=== PATIENT | male | born 1990 | race Caucasian/White ===

== ENCOUNTER 2018-03-02 14:53 | Inpatient (IN) | payer OTHER ==
[2018-03-02 15:43] VITALS: BMI 24.3
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
[2018-03-02] MEDS ORDERED: guaiFENesin/D-METHORPHAN HB 10 ML UNIT-DOSE CUPS PO PRN (18:35)
[2018-03-02] MEDS ORDERED: METHADONE HCL 10 MG TABLET (FOR DETOX USE ONLY) PO ONE ×2 (18:35→23:00)
[2018-03-02] MEDS ORDERED: LOPERAMIDE HCL 2 MG CAPSULE PO PRN (18:35)
[2018-03-02] MEDS ORDERED: P-EPHED 60MG/TRIPROLIDI 2.5MG TABLET PO PRN (18:35)
[2018-03-02] MEDS ORDERED: ACETAMINOPHEN 325 MG TABLET (FP) PO PRN (18:35)
[2018-03-02] MEDS ORDERED: MAGNESIUM CITRATE 300 ML BOTTLE PO PRN (18:35)
[2018-03-02] MEDS ORDERED: IBUPROFEN 400 MG TABLET (FP) PO PRN (18:35)
[2018-03-02] MEDS ORDERED: MAG HYDROX/AL HYDROX/SIMETH 30 ML UNIT-DOSE CUP PO PRN (18:35)
[2018-03-02] MEDS ORDERED: MENTHOL/PHENOL 1 EACH UD MM PRN (18:35)
[2018-03-02] MEDS ORDERED: MAGNESIUM HYDROX 2400MG/30ML ORAL SUSPENSION 30 ML CUP PO PRN (18:35)
[2018-03-02] MEDS ORDERED: NICOTINE POLACRILEX 4 MG GUM BUC PRN (18:35)
[2018-03-02] MEDS ORDERED: diazePAM 5 MG TABLET PO ONE (19:00)
[2018-03-02] MEDS: NICOTINE 21 MG/24 HOURS TOPICAL PATCH TD SCH (19:29)
[2018-03-02] MEDS ORDERED: MELATONIN 5 MG TABLETS PO PRN (22:00)
[2018-03-02] MEDS: BACITRACIN 0.9 GM PACKET TP SCH (22:41)
[2018-03-02] MEDS: diazePAM 5 MG TABLET PO SCH (22:42)
[2018-03-02] MEDS: THIAMINE HCL 100 MG TABLET (FP) PO SCH (22:42)
[2018-03-03] MEDS: diazePAM 5 MG TABLET PO SCH ×3 (05:22→22:20)
[2018-03-03 10:00] LABS: HEMATOCRIT 40.6 % (35.4-49); HEMOGLOBIN 13.6 GM/dL (11.7-16.9); MCH 28.1 pg (25.7-33.7); MCHC 33.4 g/dl (32.0-35.9); MEAN PLT VOLUME 7.7 fl (7.5-11.1); PLATELET COUNT 341 K/MM3 (134-434); RBC 4.83 M/mm3 (4.00-5.60); RDW 14.7 % (11.9-15.9); WHITE BLOOD COUNT 5.9 K/mm3 (4.0-10.0)
[2018-03-03] MEDS ORDERED: METHADONE HCL 10 MG TABLET (FOR DETOX USE ONLY) PO SCH (10:00)
[2018-03-03 10:47] LABS: CHLORIDE 102 mmol/L (98-107); POTASSIUM 4.8 mmol/L (3.5-5.1); SODIUM 139 mmol/L (136-145)
--- NOTE | 2018-03-03 10:51 | EKG ---
Test Reason : Blood Pressure : / mmHG Vent. Rate : 077 BPM Atrial Rate : 077 BPM P-R Int : 134 ms QRS Dur : 090 ms QT Int : 364 ms P-R-T Axes : 061 046 042 degrees QTc Int : 411 ms NORMAL SINUS RHYTHM POSSIBLE LEFT ATRIAL ENLARGEMENT BORDERLINE ECG NO PREVIOUS ECGS AVAILABLE Confirmed by TAMARA KAUR MD ([id number]) on 03/03/2018 10:50:53 AM Referred By: Confirmed By:TAMARA KAUR MD
[2018-03-03 10:59] LABS: ALBUMIN 3.2 g/dl (3.4-5.0); ALK PHOS 72 U/L (45-117); ANION GAP 7 (8-16); BILIRUBIN,TOTAL 0.4 mg/dL (0.2-1.0); BLOOD UREA NITROGEN 7 mg/dL (7-18); CALCIUM 8.9 mg/dL (8.5-10.1); CO2 30 mmol/L (21-32); CREATININE 0.9 mg/dL (0.7-1.3); GLUCOSE,RANDOM 79 mg/dL (74-106); SGOT/AST 18 U/L (15-37); SGPT/ALT 22 U/L (12-78); TOT PROT 7.4 g/dl (6.4-8.2)
[2018-03-03] MEDS: BACITRACIN 0.9 GM PACKET TP SCH ×2 (11:07→22:19)
[2018-03-03] MEDS: NICOTINE 21 MG/24 HOURS TOPICAL PATCH TD SCH (11:08)
[2018-03-03] MEDS: cloNIDine HCL 0.1 MG TABLET PO SCH ×2 (11:08→22:20)
[2018-03-03] MEDS: PRENATAL VITAMINS W/ FOLIC ACID TABLET (FP) PO SCH (11:08)
[2018-03-03] MEDS: diazePAM 5 MG TABLET PO PRN (11:13)
--- NOTE | 2018-03-03 12:19 | PN ---
[facility] CIWA - CIWA Score Nausea/Vomitin Muscle Tremors: 3 Anxiety: 3 Agitation: 3 Paroxysmal Sweats: 1-Minimal Palms Moist Orientation: 1-Uncertain about Date Tacttile Disturbances: 1-Very Mild Itch/Numbness Auditory Disturbances: 1-Very Mild Visual Disturbances: 0-None Headache: 2-Mild CIWA-Ar Total Score: 18 BHS COWS - Scale Resting Pulse: 0= [place] 80 or Below Sweatin= Chills/Flushing Restless Observation: 3= Extraneous Movement Pupil Size: 1= Pupils >than Normal Bone or Joint Aches: 2= Severe Diffuse Aches Runny Nose/ Eye Tearin= Runny Nose/Eyes GI Upset > 30mins: 3= Vomiting/Diarrhea Tremor Observation of Outstretched Hands: 2= Slight Tremor Visible Yawning Observation: 1= 1-2x During Session Anxiety or Irritability: 2=Irritable/Anxious Goose Flesh Skin: 0=Smooth Skin COWS Score: 17 S Progress Note (SOAP) Subjective: alert,irritable,anxious,interrupted sleep,pain in the body and back Objective: 03/03/18 12:17 Vital Signs Temperature 98.2 F 03/03/18 09:30 Pulse Rate 64 03/03/18 09:30 Respiratory Rate 16 03/03/18 09:30 Blood Pressure 132/57 03/03/18 09:30 O2 Sat by Pulse Oximetry (%) ekg nsr qt 364/411 no chest pain,no sob,no dizziness Laboratory Last Values WBC 5.9 K/mm3 (4.0-10.0) 03/03/18 06:19 RBC 4.83 M/mm3 (4.00-5.60) 03/03/18 06:19 Hgb 13.6 GM/dL (11.7-16.9) 03/03/18 06:19 Hct 40.6 % (35.4-49) 03/03/18 06:19 MCV 84.0 fl (80-96) 03/03/18 06:19 MCH 28.1 pg (25.7-33.7) 03/03/18 06:19 MCHC 33.4 g/dl (32.0-35.9) 03/03/18 06:19 RDW 14.7 % (11.9-15.9) 03/03/18 06:19 Plt Count 341 K/MM3 (134-434) 03/03/18 06:19 MPV 7.7 fl (7.5-11.1) 03/03/18 06:19 Sodium 139 mmol/L (136-145) 03/03/18 06:19 Potassium 4.8 mmol/L (3.5-5.1) 03/03/18 06:19 Chloride 102 mmol/L (98-107) 03/03/18 06:19 Carbon Dioxide 30 mmol/L (21-32) 03/03/18 06:19 Anion Gap 7 (8-16) L 03/03/18 06:19 BUN 7 mg/dL (7-18) 03/03/18 06:19 Creatinine 0.9 mg/dL (0.7-1.3) 03/03/18 06:19 Creat Clearance w eGFR > 60 (>60) 03/03/18 06:19 Random Glucose 79 mg/dL (74-106) 03/03/18 06:19 Calcium 8.9 mg/dL (8.5-10.1) 03/03/18 06:19 Total Bilirubin 0.4 mg/dL (0.2-1.0) 03/03/18 06:19 AST 18 U/L (15-37) 03/03/18 06:19 ALT 22 U/L (12-78) 03/03/18 06:19 Alkaline Phosphatase 72 U/L (45-117) 03/03/18 06:19 Total Protein 7.4 g/dl (6.4-8.2) 03/03/18 06:19 Albumin 3.2 g/dl (3.4-5.0) L 03/03/18 06:19 RPR Titer Nonreactive (NONREACTIVE) 03/03/18 06:19 Assessment: 03/03/18 12:18 withdrawal symptom Plan: continue detox
[2018-03-03] MEDS: CYCLOBENZAPRINE HCL 10 MG TABLET (FP) PO SCH ×2 (14:20→22:20)
[2018-03-03 15:29] LABS: URINE APPEARANCE CLEAR; URINE BILIRUBIN NEGATIVE (<2.0 mg/dL); URINE COLOR YELLOW; URINE GLUCOSE (UA) NEGATIVE (NEGATIVE); URINE KETONE NEGATIVE (NEGATIVE); URINE LEUK ESTERASE NEGATIVE (NEGATIVE); URINE NITRITE NEGATIVE (NEGATIVE); URINE PROTEIN NEGATIVE (NEGATIVE)
[2018-03-03] MEDS: THIAMINE HCL 100 MG TABLET (FP) PO SCH (22:20)
[2018-03-04] MEDS: CYCLOBENZAPRINE HCL 10 MG TABLET (FP) PO SCH ×3 (06:10→22:16)
[2018-03-04] MEDS: PRENATAL VITAMINS W/ FOLIC ACID TABLET (FP) PO SCH (10:18)
[2018-03-04] MEDS: BACITRACIN 0.9 GM PACKET TP SCH ×2 (10:18→22:19)
[2018-03-04] MEDS: diazePAM 5 MG TABLET PO SCH ×2 (10:19→22:17)
[2018-03-04] MEDS: METHADONE HCL 5 MG TABLET (FOR DETOX USE ONLY) PO SCH (10:19)
[2018-03-04] MEDS: cloNIDine HCL 0.1 MG TABLET PO SCH ×2 (10:19→22:17)
[2018-03-04] MEDS: NICOTINE 21 MG/24 HOURS TOPICAL PATCH TD SCH (10:19)
--- NOTE | 2018-03-04 11:53 | PN ---
S CIWA - CIWA Score Nausea/Vomitin Muscle Tremors: 3 Anxiety: 2 Agitation: 2 Paroxysmal Sweats: 1-Minimal Palms Moist Orientation: 0-Oriented Tacttile Disturbances: 1-Very Mild Itch/Numbness Auditory Disturbances: 1-Very Mild Visual Disturbances: 0-None Headache: 2-Mild CIWA-Ar Total Score: 15 BHS COWS - Scale Resting Pulse: 0= [place] 80 or Below Sweatin= Chills/Flushing Restless Observation: 3= Extraneous Movement Pupil Size: 1= Pupils >than Normal Bone or Joint Aches: 2= Severe Diffuse Aches Runny Nose/ Eye Tearin= Nasal Congestion GI Upset > 30mins: 2= Nausea/Diarrhea Tremor Observation of Outstretched Hands: 2= Slight Tremor Visible Yawning Observation: 1= 1-2x During Session Anxiety or Irritability: 2=Irritable/Anxious Goose Flesh Skin: 0=Smooth Skin COWS Score: 15 BHS Progress Note (SOAP) Subjective: alert,irritable,anxious,interrupted sleep,tremor,pain in the body and back Objective: 03/04/18 11:51 Vital Signs Temperature 98.1 F 03/04/18 11:19 Pulse Rate 50 L 03/04/18 11:19 Respiratory Rate 20 03/04/18 11:19 Blood Pressure 93/50 03/04/18 11:19 O2 Sat by Pulse Oximetry (%) Laboratory Last Values WBC 5.9 K/mm3 (4.0-10.0) 03/03/18 06:19 RBC 4.83 M/mm3 (4.00-5.60) 03/03/18 06:19 Hgb 13.6 GM/dL (11.7-16.9) 03/03/18 06:19 Hct 40.6 % (35.4-49) 03/03/18 06:19 MCV 84.0 fl (80-96) 03/03/18 06:19 MCH 28.1 pg (25.7-33.7) 03/03/18 06:19 MCHC 33.4 g/dl (32.0-35.9) 03/03/18 06:19 RDW 14.7 % (11.9-15.9) 03/03/18 06:19 Plt Count 341 K/MM3 (134-434) 03/03/18 06:19 MPV 7.7 fl (7.5-11.1) 03/03/18 06:19 Sodium 139 mmol/L (136-145) 03/03/18 06:19 Potassium 4.8 mmol/L (3.5-5.1) 03/03/18 06:19 Chloride 102 mmol/L (98-107) 03/03/18 06:19 Carbon Dioxide 30 mmol/L (21-32) 03/03/18 06:19 Anion Gap 7 (8-16) L 03/03/18 06:19 BUN 7 mg/dL (7-18) 03/03/18 06:19 Creatinine 0.9 mg/dL (0.7-1.3) 03/03/18 06:19 Creat Clearance w eGFR > 60 (>60) 03/03/18 06:19 Random Glucose 79 mg/dL (74-106) 03/03/18 06:19 Calcium 8.9 mg/dL (8.5-10.1) 03/03/18 06:19 Total Bilirubin 0.4 mg/dL (0.2-1.0) 03/03/18 06:19 AST 18 U/L (15-37) 03/03/18 06:19 ALT 22 U/L (12-78) 03/03/18 06:19 Alkaline Phosphatase 72 U/L (45-117) 03/03/18 06:19 Total Protein 7.4 g/dl (6.4-8.2) 03/03/18 06:19 Albumin 3.2 g/dl (3.4-5.0) L 03/03/18 06:19 Urine Color Yellow 03/03/18 10:40 Urine Appearance Clear 03/03/18 10:40 Urine pH 5.0 (5.0-8.0) 03/03/18 10:40 Ur Specific [place] 1.021 (1.001-1.035) 03/03/18 10:40 Urine Protein Negative (NEGATIVE) 03/03/18 10:40 Urine Glucose (UA) Negative (NEGATIVE) 03/03/18 10:40 Urine Ketones Negative (NEGATIVE) 03/03/18 10:40 Urine Blood Negative (NEGATIVE) 03/03/18 10:40 Urine Nitrite Negative (NEGATIVE) 03/03/18 10:40 Urine Bilirubin Negative (<2.0 mg/dL) 03/03/18 10:40 Urine Urobilinogen 2.0 mg/dL (0.2-1.0) 03/03/18 10:40 Ur Leukocyte Esterase Negative (NEGATIVE) 03/03/18 10:40 RPR Titer Nonreactive (NONREACTIVE) 03/03/18 06:19 Assessment: 03/04/18 11:52 withdrawal symptom Plan: continue detox
[2018-03-04] MEDS: diazePAM 5 MG TABLET PO PRN (13:12)
[2018-03-04] MEDS: THIAMINE HCL 100 MG TABLET (FP) PO SCH (22:16)
[2018-03-05] MEDS: CYCLOBENZAPRINE HCL 10 MG TABLET (FP) PO SCH ×3 (05:41→22:39)
[2018-03-05] MEDS: diazePAM 5 MG TABLET PO PRN ×2 (05:42→14:20)
[2018-03-05] MEDS: METHADONE HCL 5 MG TABLET (FOR DETOX USE ONLY) PO SCH (10:35)
[2018-03-05] MEDS: BACITRACIN 0.9 GM PACKET TP SCH ×2 (10:35→22:15)
[2018-03-05] MEDS: PRENATAL VITAMINS W/ FOLIC ACID TABLET (FP) PO SCH (10:35)
[2018-03-05] MEDS: cloNIDine HCL 0.1 MG TABLET PO SCH ×2 (10:35→22:16)
[2018-03-05] MEDS: diazePAM 5 MG TABLET PO SCH ×2 (10:35→22:16)
[2018-03-05] MEDS: NICOTINE 21 MG/24 HOURS TOPICAL PATCH TD SCH (10:36)
--- NOTE | 2018-03-05 14:20 | PN ---
BHS Progress Note (SOAP) Subjective: anxiety body aches sweat tremor trouble concentration low energy Objective: 03/05/18 14:23 Vital Signs Temperature 98.4 F 03/05/18 09:47 Pulse Rate 53 L 03/05/18 09:47 Respiratory Rate 18 03/05/18 09:47 Blood Pressure 110/55 03/05/18 09:47 O2 Sat by Pulse Oximetry (%) Laboratory Last Values WBC 5.9 K/mm3 (4.0-10.0) 03/03/18 06:19 RBC 4.83 M/mm3 (4.00-5.60) 03/03/18 06:19 Hgb 13.6 GM/dL (11.7-16.9) 03/03/18 06:19 Hct 40.6 % (35.4-49) 03/03/18 06:19 MCV 84.0 fl (80-96) 03/03/18 06:19 MCH 28.1 pg (25.7-33.7) 03/03/18 06:19 MCHC 33.4 g/dl (32.0-35.9) 03/03/18 06:19 RDW 14.7 % (11.9-15.9) 03/03/18 06:19 Plt Count 341 K/MM3 (134-434) 03/03/18 06:19 MPV 7.7 fl (7.5-11.1) 03/03/18 06:19 Sodium 139 mmol/L (136-145) 03/03/18 06:19 Potassium 4.8 mmol/L (3.5-5.1) 03/03/18 06:19 Chloride 102 mmol/L (98-107) 03/03/18 06:19 Carbon Dioxide 30 mmol/L (21-32) 03/03/18 06:19 Anion Gap 7 (8-16) L 03/03/18 06:19 BUN 7 mg/dL (7-18) 03/03/18 06:19 Creatinine 0.9 mg/dL (0.7-1.3) 03/03/18 06:19 Creat Clearance w eGFR > 60 (>60) 03/03/18 06:19 Random Glucose 79 mg/dL (74-106) 03/03/18 06:19 Calcium 8.9 mg/dL (8.5-10.1) 03/03/18 06:19 Total Bilirubin 0.4 mg/dL (0.2-1.0) 03/03/18 06:19 AST 18 U/L (15-37) 03/03/18 06:19 ALT 22 U/L (12-78) 03/03/18 06:19 Alkaline Phosphatase 72 U/L (45-117) 03/03/18 06:19 Total Protein 7.4 g/dl (6.4-8.2) 03/03/18 06:19 Albumin 3.2 g/dl (3.4-5.0) L 03/03/18 06:19 Urine Color Yellow 03/03/18 10:40 Urine Appearance Clear 03/03/18 10:40 Urine pH 5.0 (5.0-8.0) 03/03/18 10:40 Ur Specific [place] 1.021 (1.001-1.035) 03/03/18 10:40 Urine Protein Negative (NEGATIVE) 03/03/18 10:40 Urine Glucose (UA) Negative (NEGATIVE) 03/03/18 10:40 Urine Ketones Negative (NEGATIVE) 03/03/18 10:40 Urine Blood Negative (NEGATIVE) 03/03/18 10:40 Urine Nitrite Negative (NEGATIVE) 03/03/18 10:40 Urine Bilirubin Negative (<2.0 mg/dL) 03/03/18 10:40 Urine Urobilinogen 2.0 mg/dL (0.2-1.0) 03/03/18 10:40 Ur Leukocyte Esterase Negative (NEGATIVE) 03/03/18 10:40 RPR Titer Nonreactive (NONREACTIVE) 03/03/18 06:19 lab noted Assessment: 03/05/18 14:23 withdrawal sx Plan: continue detox
[2018-03-05] MEDS: THIAMINE HCL 100 MG TABLET (FP) PO SCH (22:16)
[2018-03-06] MEDS: CYCLOBENZAPRINE HCL 10 MG TABLET (FP) PO SCH ×3 (05:38→22:25)
[2018-03-06] MEDS: hydrOXYzine PAMOATE 50 MG CAPSULE (FP) PO PRN ×3 (05:40→18:17)
[2018-03-06] MEDS ORDERED: diazePAM 5 MG TABLET PO SCH (10:00)
[2018-03-06] MEDS ORDERED: METHADONE HCL 10 MG TABLET (FOR DETOX USE ONLY) PO SCH (10:00)
[2018-03-06] MEDS: PRENATAL VITAMINS W/ FOLIC ACID TABLET (FP) PO SCH (10:21)
[2018-03-06] MEDS: BACITRACIN 0.9 GM PACKET TP SCH ×2 (10:22→22:25)
[2018-03-06] MEDS: cloNIDine HCL 0.1 MG TABLET PO SCH ×2 (10:22→22:25)
[2018-03-06] MEDS: NICOTINE 21 MG/24 HOURS TOPICAL PATCH TD SCH (10:22)
--- NOTE | 2018-03-06 10:54 | PN ---
BHS Progress Note (SOAP) Subjective: feeling better no tremor no body aches sleep better at night Objective: 03/06/18 10:53 Vital Signs Temperature 97.9 F 03/06/18 09:20 Pulse Rate 71 03/06/18 09:20 Respiratory Rate 18 03/06/18 09:20 Blood Pressure 109/61 03/06/18 09:20 O2 Sat by Pulse Oximetry (%) Laboratory Last Values WBC 5.9 K/mm3 (4.0-10.0) 03/03/18 06:19 RBC 4.83 M/mm3 (4.00-5.60) 03/03/18 06:19 Hgb 13.6 GM/dL (11.7-16.9) 03/03/18 06:19 Hct 40.6 % (35.4-49) 03/03/18 06:19 MCV 84.0 fl (80-96) 03/03/18 06:19 MCH 28.1 pg (25.7-33.7) 03/03/18 06:19 MCHC 33.4 g/dl (32.0-35.9) 03/03/18 06:19 RDW 14.7 % (11.9-15.9) 03/03/18 06:19 Plt Count 341 K/MM3 (134-434) 03/03/18 06:19 MPV 7.7 fl (7.5-11.1) 03/03/18 06:19 Sodium 139 mmol/L (136-145) 03/03/18 06:19 Potassium 4.8 mmol/L (3.5-5.1) 03/03/18 06:19 Chloride 102 mmol/L (98-107) 03/03/18 06:19 Carbon Dioxide 30 mmol/L (21-32) 03/03/18 06:19 Anion Gap 7 (8-16) L 03/03/18 06:19 BUN 7 mg/dL (7-18) 03/03/18 06:19 Creatinine 0.9 mg/dL (0.7-1.3) 03/03/18 06:19 Creat Clearance w eGFR > 60 (>60) 03/03/18 06:19 Random Glucose 79 mg/dL (74-106) 03/03/18 06:19 Calcium 8.9 mg/dL (8.5-10.1) 03/03/18 06:19 Total Bilirubin 0.4 mg/dL (0.2-1.0) 03/03/18 06:19 AST 18 U/L (15-37) 03/03/18 06:19 ALT 22 U/L (12-78) 03/03/18 06:19 Alkaline Phosphatase 72 U/L (45-117) 03/03/18 06:19 Total Protein 7.4 g/dl (6.4-8.2) 03/03/18 06:19 Albumin 3.2 g/dl (3.4-5.0) L 03/03/18 06:19 Urine Color Yellow 03/03/18 10:40 Urine Appearance Clear 03/03/18 10:40 Urine pH 5.0 (5.0-8.0) 03/03/18 10:40 Ur Specific [place] 1.021 (1.001-1.035) 03/03/18 10:40 Urine Protein Negative (NEGATIVE) 03/03/18 10:40 Urine Glucose (UA) Negative (NEGATIVE) 03/03/18 10:40 Urine Ketones Negative (NEGATIVE) 03/03/18 10:40 Urine Blood Negative (NEGATIVE) 03/03/18 10:40 Urine Nitrite Negative (NEGATIVE) 03/03/18 10:40 Urine Bilirubin Negative (<2.0 mg/dL) 03/03/18 10:40 Urine Urobilinogen 2.0 mg/dL (0.2-1.0) 03/03/18 10:40 Ur Leukocyte Esterase Negative (NEGATIVE) 03/03/18 10:40 RPR Titer Nonreactive (NONREACTIVE) 03/03/18 06:19 lab noted Assessment: 03/06/18 10:53 mild withdrawal sx Plan: medically supervised detox
[2018-03-06] MEDS: THIAMINE HCL 100 MG TABLET (FP) PO SCH (22:26)
[2018-03-07] MEDS: CYCLOBENZAPRINE HCL 10 MG TABLET (FP) PO SCH (05:57)
[2018-03-07] MEDS ORDERED: METHADONE HCL 5 MG TABLET (FOR DETOX USE ONLY) PO SCH (06:00)
--- NOTE | 2018-03-07 08:18 | PN ---
S Progress Note (SOAP) Subjective: alert,no complaint Objective: 03/07/18 08:17 Vital Signs Temperature 97.5 F L 03/07/18 06:12 Pulse Rate 45 L 03/07/18 06:12 Respiratory Rate 16 03/07/18 06:12 Blood Pressure 118/59 03/07/18 06:12 O2 Sat by Pulse Oximetry (%) Assessment: 03/07/18 08:17 detox completed,no withdrawal symptom Plan: discharge today,follow up with after care program as arrangement
--- NOTE | 2018-03-07 08:22 | DS ---
[facility] Detox Discharge Summary Admission Date: 03/02/18 Discharge Date: 03/07/18 - History Present History: Alcohol Dependence, Opioid Dependence, Sedative Dependence - Physical Exam Results Vital Signs: Vital Signs Temperature 97.5 F L 03/07/18 06:12 Pulse Rate 45 L 03/07/18 06:12 Respiratory Rate 16 03/07/18 06:12 Blood Pressure 118/59 03/07/18 06:12 O2 Sat by Pulse Oximetry (%) Pertinent Admission Physical Exam Findings: withdrawal signs and symptom Laboratory Last Values WBC 5.9 K/mm3 (4.0-10.0) 03/03/18 06:19 RBC 4.83 M/mm3 (4.00-5.60) 03/03/18 06:19 Hgb 13.6 GM/dL (11.7-16.9) 03/03/18 06:19 Hct 40.6 % (35.4-49) 03/03/18 06:19 MCV 84.0 fl (80-96) 03/03/18 06:19 MCH 28.1 pg (25.7-33.7) 03/03/18 06:19 MCHC 33.4 g/dl (32.0-35.9) 03/03/18 06:19 RDW 14.7 % (11.9-15.9) 03/03/18 06:19 Plt Count 341 K/MM3 (134-434) 03/03/18 06:19 MPV 7.7 fl (7.5-11.1) 03/03/18 06:19 Sodium 139 mmol/L (136-145) 03/03/18 06:19 Potassium 4.8 mmol/L (3.5-5.1) 03/03/18 06:19 Chloride 102 mmol/L (98-107) 03/03/18 06:19 Carbon Dioxide 30 mmol/L (21-32) 03/03/18 06:19 Anion Gap 7 (8-16) L 03/03/18 06:19 BUN 7 mg/dL (7-18) 03/03/18 06:19 Creatinine 0.9 mg/dL (0.7-1.3) 03/03/18 06:19 Creat Clearance w eGFR > 60 (>60) 03/03/18 06:19 Random Glucose 79 mg/dL (74-106) 03/03/18 06:19 Calcium 8.9 mg/dL (8.5-10.1) 03/03/18 06:19 Total Bilirubin 0.4 mg/dL (0.2-1.0) 03/03/18 06:19 AST 18 U/L (15-37) 03/03/18 06:19 ALT 22 U/L (12-78) 03/03/18 06:19 Alkaline Phosphatase 72 U/L (45-117) 03/03/18 06:19 Total Protein 7.4 g/dl (6.4-8.2) 03/03/18 06:19 Albumin 3.2 g/dl (3.4-5.0) L 03/03/18 06:19 Urine Color Yellow 03/03/18 10:40 Urine Appearance Clear 03/03/18 10:40 Urine pH 5.0 (5.0-8.0) 03/03/18 10:40 Ur Specific [place] 1.021 (1.001-1.035) 03/03/18 10:40 Urine Protein Negative (NEGATIVE) 03/03/18 10:40 Urine Glucose (UA) Negative (NEGATIVE) 03/03/18 10:40 Urine Ketones Negative (NEGATIVE) 03/03/18 10:40 Urine Blood Negative (NEGATIVE) 03/03/18 10:40 Urine Nitrite Negative (NEGATIVE) 03/03/18 10:40 Urine Bilirubin Negative (<2.0 mg/dL) 03/03/18 10:40 Urine Urobilinogen 2.0 mg/dL (0.2-1.0) 03/03/18 10:40 Ur Leukocyte Esterase Negative (NEGATIVE) 03/03/18 10:40 RPR Titer Nonreactive (NONREACTIVE) 03/03/18 06:19 Vital Signs Temperature 97.5 F L 03/07/18 06:12 Pulse Rate 45 L 03/07/18 06:12 Respiratory Rate 16 03/07/18 06:12 Blood Pressure 118/59 03/07/18 06:12 O2 Sat by Pulse Oximetry (%) - Treatment Hospital Course: Detox Protocol Followed, Detoxed Safely, Responded well, Discharged Condition Good Patient has Accepted a Rehab Referral to: declined - Medication Discharge Medications: Ambulatory Orders NK [No Known Home Medication] 03/02/18 - Diagnosis (1) Opioid dependence with withdrawal Current Visit: Yes Status: Acute (2) Alcohol dependence with uncomplicated withdrawal Current Visit: Yes Status: Acute (3) Sedative, hypnotic or anxiolytic dependence with withdrawal, uncomplicated Current Visit: Yes Status: Acute (4) Cocaine dependence Current Visit: Yes Status: Chronic (5) Marijuana dependence Current Visit: Yes Status: Chronic (6) Track escalante due to intravenous drug abuse Current Visit: Yes Status: Chronic - AMA Did Patient Leave Against Medical Advice: No
[2018-03-07] MEDS: BACITRACIN 0.9 GM PACKET TP SCH (09:41)
[2018-03-07] MEDS: cloNIDine HCL 0.1 MG TABLET PO SCH (09:41)
[2018-03-07] MEDS: NICOTINE 21 MG/24 HOURS TOPICAL PATCH TD SCH (09:41)
[2018-03-07] MEDS: PRENATAL VITAMINS W/ FOLIC ACID TABLET (FP) PO SCH (09:42)
[2018-03-07 11:18] VITALS: BP 111/84; PULSE 105; TEMP 99
== END 2018-03-07 09:53 | disposition home or self-care (01) | DRG 773 ==
LOC: YASAS 14:53 → Y6N 18:32
PROVIDERS: ADMIT Surgery; ATTEND Surgery
PROC: HZ2ZZZZ Detoxification Services for Substance Abuse Treatment (ICD-10-PCS; principal; 2018-03-02)
DX: F11.23 Opioid dependence with withdrawal (principal); F13.230 Sedative, hypnotic or anxiolytic dependence with withdrawal, uncomplicated; F10.230 Alcohol dependence with withdrawal, uncomplicated; F14.20 Cocaine dependence, uncomplicated; F12.20 Cannabis dependence, uncomplicated
CPT/HCPCS: 36415; 80053; 81003; 85027; 86593; 93005; 93010; J0735